=== PATIENT | female | born 1950 | race Caucasian/White ===

== ENCOUNTER 2017-07-21 06:55 | Day surgery (SDC) | payer MEDICARE, BC ==
[2017-07-21] MEDS ORDERED: Lactated Ringers 1,000 ML IV SCH ×2 (07:00→12:00)
[2017-07-21] MEDS ORDERED: fentaNYL 100 MCG/2 ML SDV IV ONE (09:30)
[2017-07-21] MEDS ORDERED: Lactated Ringers 1,000 ML IV ONE (09:30)
[2017-07-21] MEDS ORDERED: ceFAZolin 1 GM Vial IV ONE (09:30)
[2017-07-21] MEDS ORDERED: diphenhydrAMINE 50 MG/ML SDV IV ONE (09:30)
[2017-07-21] MEDS ORDERED: Ondansetron 4 MG/2 ML SDV IVPUSH ONE (09:30)
[2017-07-21] MEDS ORDERED: Ketorolac 15 MG/ML SDV IVPUSH ONE (09:30)
[2017-07-21] MEDS ORDERED: ePHEDrine 50 MG/ML SDV IV ONE (09:30)
[2017-07-21] MEDS ORDERED: Midazolam 1 MG/ML 2 ML SDV IV ONE (09:30)
[2017-07-21] MEDS ORDERED: Dexamethasone 4 MG/ML 5 ML MDV IVPUSH ONE (09:30)
[2017-07-21] MEDS ORDERED: Propofol 200 MG/20 ML SDV IV ONE (09:30)
--- NOTE | 2017-07-21 09:58 | PREOP ---
ADMISSION DATE: 07/21/2017 HISTORY OF PRESENT ILLNESS: This 66-year-old female presents today for left breast lumpectomy and sentinel node dissection. 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 A 5 mm lesion was noted on recent mammogram and core biopsy of this was performed confirming the diagnosis of invasive carcinoma. I have discussed carefully with the patient both this morning and previously her options for management. Discussion is carried out regarding the ramifications and expectations with lumpectomy or mastectomy. After careful consideration and consultation with her family, the patient has agreed today to proceed with a left breast lumpectomy and left axillary sentinel node dissection. I have made clear in my discussion that it is anticipated that this patient will need radiation to the left breast after the lumpectomy to be sure all of the cancer cells from the left breast are destroyed. PAST MEDICAL HISTORY: Reviewed. She has a history of hypertension, atherosclerotic vascular disease with carotid stenosis, and hypothyroidism. MEDICATIONS: Include, 1. Hyzaar. 2. Synthroid. 3. Zocor. ALLERGIES: She has no known drug allergies. PHYSICAL EXAMINATION: Examination of the left breast today shows the biopsy site to be clean. Palpation reveals no palpable masses in the left breast and palpation of the left axilla identifies no palpable lymph nodes on that side. The patient will proceed today to have injection into the left breast of the radionucleotide tracer. She will then go on to needle localization of the cancer location and then proceed to the operating room where left breast lumpectomy with rapid frozen section analysis to be sure surgical margins are clear as well as sentinel node dissection of the left axilla are scheduled. This proposed operative procedure has been discussed with the patient. She understands indications, options, and risks, and she agrees to proceed. Discussion has also been carried out with the patient's and his questions were answered as well. Impression: Invasive Cancer Left Breast Plan: Left Breast Lumpectomy with Left Axillary [place] Lymph node Biopsy I discussed the proposed operative procedure with the patient. Risks and expectations discussed and she agrees to proceed. /[id number] AIDEE PERALTA
[2017-07-21] MEDS ORDERED: Isosulfan Blue 5 ML SDV SUBCUT ONE (10:10)
[2017-07-21] MEDS ORDERED: Bupivacaine 0.5%/EPINEPHrine 1:200,000 50 ML MDV ONE (10:14)
--- NOTE | 2017-07-21 10:54 | NM ---
INDICATION: Left breast CA. TUMOR LOCALIZATION LIMITED, NUCLEAR MEDICINE: 1.2 mCi technetium-99m filtered sulfur colloid in 1.3 mL volume was injected in the breast to evaluate sentinel nodes. No complications were noted. MTDD
--- NOTE | 2017-07-21 10:55 | MY ---
INDICATION: Left breast CA MAMMOGRAPHY GUIDE NEEDLE WIRE LOCALIZATION LEFT BREAST: Utilizing mammographic guidance and [place]ammal[place] type needle, 7.5 cm in length, the biopsy site was localized successfully after utilizing aseptic technique and a local anesthetic , and after discussing the procedure with the patient. Successful localization was felt to be present. No complicating process was noted. The patient was sent to surgery in good condition. Results were discussed with Dr. Sal Gates. FABIAN
[2017-07-21] MEDS ORDERED: Morphine 10 MG/ML Syringe IVPUSH PRN ×2 (11:58)
[2017-07-21] MEDS ORDERED: fentaNYL 100 MCG/2 ML SDV IVPUSH PRN (11:58)
[2017-07-21] MEDS ORDERED: Naloxone 0.4 MG/ML SDV IVPUSH PRN (11:58)
[2017-07-21] MEDS ORDERED: Albuterol 0.083% 2.5 MG/3 ML Neb Soln NEB PRN (11:58)
[2017-07-21] MEDS ORDERED: Promethazine 25 MG/ML SDV IM PRN (11:58)
--- NOTE | 2017-07-21 12:10 | PCM.OPNOTE ---
- General Post-Op/Procedure Note Date of Surgery/Procedure: 07/21/17 Operative Procedure(s): Left Breast Lumpectomy with Left Axillary [place] Lymph Node Biopsy Findings: Small Invasive Cancer Left breast with surrounding areas of DCIS. Margins clear on RFS. Axillary lymph nodes clinically negative for cancer Pre Op Diagnosis: Cancer Left Breast Post-Op Diagnosis: Same Anesthesia Technique: General ET Tube Primary Surgeon: Sal Gates Foreign Trade Teacher: Shahab Lr Reason Foreign Trade Teacher Was Necessary: Assist in exposure and efficiency of dissection Pathology: Left Breast Lumpectomy for RFS 3 sentinel axillary lymph nodes Output, Urine Amount: 0 EBL in mLs: 25 Surgical Drain/Tube Type: [place] Complications: None Condition: Good
[2017-07-21] MEDS ORDERED: Acetaminophen/HYDROcodone 325-5 MG Tab PO ONE (12:44)
--- NOTE | 2017-07-21 13:29 | MY ---
INDICATION: Left breast cancer resection. MAMMOGRAM SURGICAL SPECIMEN LEFT BREAST: A single radiograph of the left breast excisional surgical specimen was obtained and revealed calcifications and some areas of dense breast tissue. The area of the biopsy site is suggested at one point towards the middle of the specimen, suggesting good margins. The biopsy coil was not visualized, apparently having come out of the surgical incision. IMPRESSION: Probable satisfactory excisional biopsy - correlate with laboratory findings. MTDD
--- NOTE | 2017-07-21 18:42 | OR ---
DATE OF OPERATION: 07/21/2017 SURGEON: Sal Gates MD PREOPERATIVE DIAGNOSIS: Invasive carcinoma of the left breast. 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 OPERATION PERFORMED: Left breast lumpectomy using needle localization technique and rapid frozen section analysis and left axillary sentinel lymph node biopsy. INDICATIONS FOR SURGERY: This 66-year-old female was recently found on mammogram to have a lesion in the left breast. Core needle biopsy of the lesion confirmed it to contain invasive malignancy. FINDINGS: In the upper portion of the breast, there is a small cancer approximately 5 mm in size. Rapid frozen section analysis identified the cancer to be within the surgical specimen and surgical margins to be clear of this invasive cancer. There was also scattered areas of DCIS within the excised breast tissue and these surgical margins were also felt to be clear by the pathologist on rapid frozen section analysis. The patient's left axillary lymph nodes were clinically negative being not enlarged or unusually hard. Three sentinel nodes were removed to be assessed for evidence of microscopic metastasis. PROCEDURE IN DETAIL: Prior to surgery, the patient underwent injection of 1.3 mL of sulfur colloid with a 1.2 millicuries of technetium-99. This was injected just beneath the areola in the left breast. The patient then went on to have a localizing needle placed in the area of the tumor by the radiologist. She then went to the operating room, placed under general anesthesia, and the left breast and axilla were sterilely prepped and draped. Using the nuclear medicine probe, the general location of the sentinel nodes were identified in the axilla and a transverse incision was made in the skin of the axilla over this area. Dissection proceeded down into the axillary space and utilizing the probe to identify the areas where there was increased radioactivity and cautery dissection were used to remove 3 separate lymph nodes from this region, each of which were noted to have increased activity in them. 10-second counts from these nodes were 7721, 2640, and 912. None of these nodes grossly appeared to be involved with cancer. Palpation did not reveal any other enlarged nodes or any other areas of significant uptake. Attention was then turned to the left breast, where a curvilinear incision was made above the left areolar margin over the location of the localizing needle. Dissection proceeded down to just beneath the skin and then from this point posteriorly utilizing cautery dissection, a mass of breast tissue was removed encompassing tissue both anteriorly and posteriorly to the localizing needle in the area where the tumor was. The dissection began just beneath the skin and extended down to the chest wall with the intervening breast tissue being removed from this area and around the needle. The tissue with the contained needle were then submitted to specimen mammography. It was not clear from mammogram whether the area of concern was included in the specimen, but on evaluation by the pathologist, the location of the tumor was identified, the margins were inked and the specimen was examined under rapid frozen section analysis. On assessment, it was felt by the pathologist that the tumor itself had been completely removed with clear surgical margins and there was some scattered areas of DCIS in the specimen as well and these were also felt to have clear surgical margins around them by the assessing pathologist. The wounds are closed after irrigating by approximating the subcutaneous tissue with interrupted 3-0 Vicryl and the breast incision was closed with interrupted 4-0 Prolene. The axilla incision was closed with a running 4-0 Vicryl. In both incisions, small [place] drains are left exiting the corner of the incision and these were secured to the skin with silk sutures. A sterile dressing was placed. The patient was awakened, extubated, and taken from the operating room in satisfactory condition. ESTIMATED BLOOD LOSS: 25 mL. COMPLICATIONS: None. PROGNOSIS: Good. /[id number] CLEM/SHIVA PERALTA
== END 2017-07-21 14:05 | disposition home or self-care (01) ==
LOC: FB.SDS 06:55 → UNDOADMIN 06:55 → FB.MS 06:55 → EDSTATUS 09:00 → FB.SDS 14:05
PROVIDERS: ATTEND Surgery
DX: C50.912 Malignant neoplasm of unspecified site of left female breast (principal); R92.0 Mammographic microcalcification found on diagnostic imaging of breast; I10 Essential (primary) hypertension; E03.9 Hypothyroidism, unspecified; Z79.899 Other long term (current) drug therapy; Z90.49 Acquired absence of other specified parts of digestive tract; Z98.890 Other specified postprocedural states; Z96.652 Presence of left artificial knee joint
CPT/HCPCS: 00400; 19281; 38525; 76098; 78800; 88307; 88331; 88342; A9270; A9541; J0690; J1100; J1200; J1885; J2250; J2405; J2704; J3010; J7120; Q9968